=== PATIENT | female | born 1970 | race African-American/Black ===

== ENCOUNTER 2023-06-04 11:55 | Emergency (ER) | payer BC ==
[2023-06-04 12:03] VITALS: BP 142/68; PULSE 82; RESP 17; TEMP 98.4; BMI 22.3
[2023-06-04 13:56] LABS: BASO % 0.5 % (0-2.0); HEMATOCRIT 34.9 % (32.4-45.2); HEMOGLOBIN 11.4 GM/dL (10.7-15.3); LYMPH % 59.6 % (8-40); MCH 28.8 pg (25.7-33.7); MCHC 32.6 g/dl (32.0-36.0); MEAN CELL VOLUME 88.4 fl (80-96); MEAN PLT VOLUME 8.7 fl (7.5-11.1); MONO % 9.4 % (3.8-10.2); NEUT % 28.5 % (42.8-82.8); PLATELET COUNT 235 10^3/uL (134-434); RBC 3.95 M/mm3 (3.60-5.2); RDW 14.5 % (11.6-15.6); WHITE BLOOD COUNT 3.5 K/mm3 (4.0-10.0)
[2023-06-04 14:06] LABS: POTASSIUM 4.6 mmol/L (3.5-5.1)
[2023-06-04 14:08] LABS: CALCIUM 9.9 mg/dL (8.5-10.1)
[2023-06-04 14:09] LABS: ALBUMIN 3.9 g/dl (3.4-5.0); BLOOD UREA NITROGEN 9.7 mg/dL (7-18)
[2023-06-04 14:12] LABS: CREATININE 0.6 mg/dL (0.55-1.3)
[2023-06-04 14:13] LABS: BILIRUBIN,TOTAL 0.2 mg/dL (0.2-1)
== END 2023-06-04 14:39 | disposition home or self-care (01) ==
LOC: JERFT 11:55
DX: G43.101 Migraine with aura, not intractable, with status migrainosus (principal); N92.0 Excessive and frequent menstruation with regular cycle; D64.9 Anemia, unspecified
CPT/HCPCS: 36415; 80053; 85025; 99283-25

== ENCOUNTER 2024-01-08 09:16 | Day surgery (SDC) | payer BC ==
[2024-01-05 15:36] VITALS: BMI 23.1
[2024-01-08] MEDS ORDERED: PROPOFOL 40 ML ONE ×2 (09:30→10:14)
[2024-01-08] MEDS ORDERED: LIDOCAINE HCL/PF 2% SDV 5ML VIAL ONE ×2 (09:30→10:14)
[2024-01-08 09:31] VITALS: RESP 16
[2024-01-08 11:10] VITALS: TEMP 96.8
[2024-01-08 11:31] VITALS: BP 118/79; PULSE 64
== END 2024-01-08 11:40 | disposition home or self-care (01) ==
LOC: FASU-ENDO 09:16
PROVIDERS: ATTEND Internal Medicine Gastroenterology
PROC: 0DJD8ZZ Inspection of Lower Intestinal Tract, Via Natural or Artificial Opening Endoscopic (ICD-10-PCS; principal; 2024-01-08 10:40)
DX: Z12.11 Encounter for screening for malignant neoplasm of colon (principal); K64.1 Second degree hemorrhoids
CPT/HCPCS: 81025